=== PATIENT | female | born 1995 | race Caucasian/White ===

== ENCOUNTER 2021-04-05 06:13 | Emergency (ER) | payer OTHER ==
--- NOTE | 2021-04-05 08:12 | EDM.PDOCBH ---
ED HPI GENERAL MEDICAL PROBLEM - General Chief Complaint: Behavioral/Psych Stated Complaint: DEPRESSION/ANXIETY Time Seen by Provider: 04/05/21 07:30 - History of Present Illness INITIAL COMMENTS - FREE TEXT/NARRATIVE: She presents with increasing depression, mood changes, anxiety. Patient has been on Lexapro 10 mg for over the last month prior to that time she been on sertraline. She is followed by a nurse practitioner that manages her medications. She has an appointment tomorrow. She is very teary-eyed on presentation. She feels like she has hopelessness and has thought of ""not wanting to be alive anymore". She is never had a plan of suicide however. She does have a 5-year-old son at the bedside smiling happy and playful. Her is out of town this weekend fishing in [place]. Otherwise she has no other specific family support here in town. No recent triggers for this other than being off her medication for the last week. She also thought she was feeling a little bit better without the medication and did note some lightheaded and dizziness without it. Patient otherwise denies any fevers no headaches no coughing or cold symptoms no vomiting or diarrhea her appetites been somewhat diminished she got a history of thyroid removal and currently on thyroid replacement recently in the last 2 weeks had her blood test and TSH release thyroid function sounds like's been normal and has not required any adjustments. Patient otherwise no has no hallucinations denies smoking alcohol or drug use. Onset: Sudden - Related Data Allergies Allergy/AdvReac Type Severity Reaction Status Date / Time No Known Allergies Allergy Verified 04/05/21 06:29 Home Meds: Home Meds Escitalopram Oxalate [Lexapro] 10 mg PO DAILY 04/05/21 [History] LORazepam [Ativan] 0.5 mg PO Q8HR PRN #4 tablet 04/05/21 [Rx] Levothyroxine 125 mcg PO ACBREAKFAST 04/05/21 [History] Past Medical History HEENT History: Reports: Impaired Vision Other HEENT History: Wears glasses Cardiovascular History: Reports: Other (See Below) Other Cardiovascular History: Ablation for SVT in 2008 [employer] History: Reports: Psychiatric History: Reports: Anxiety, Depression Endocrine/Metabolic History: Reports: Hypothyroidism - Infectious Disease History Infectious Disease History: Reports: Chicken Pox Social & Family History - Family History Family Medical History: No Pertinent Family History - Tobacco Use Tobacco Use Status *Q: Never Tobacco User Second Hand Smoke Exposure: No - Caffeine Use Caffeine Use: Reports: Coffee, Energy Drinks - Recreational Drug Use Recreational Drug Use: No ED ROS GENERAL - Review of Systems Review Of Systems: See Below Constitutional: Reports: No Symptoms HEENT: Reports: No Symptoms Respiratory: Denies: Shortness of Breath, Cough Cardiovascular: Denies: Chest Pain GI/Abdominal: Reports: Nausea. Denies: Abdominal Pain, Diarrhea, Vomiting : Denies: Dysuria Neurological: Reports: No Symptoms Psychiatric: Reports: Anxiety, Depression. Denies: Hallucinations, Homicidal Ideation ED EXAM, BEHAVIORAL HEALTH - Physical Exam Exam: See Below Exam Limited By: No Limitations General Appearance: Alert, WD/WN, Other (Teary-eyed alert and oriented) Respiratory/Chest: No Respiratory Distress, Lungs Clear, Normal Breath Sounds Cardiovascular: Normal Peripheral Pulses, Regular Rate, Rhythm, No Edema GI/Abdominal: Normal Bowel Sounds, Soft Neurological: Alert, Normal Mood/Affect Psychiatric: Normal Cognition, Oriented, Depressed Mood, Other (Patient currently does not feel unsafe.). No: Homicidal Thoughts, Suicidal Plan, Suicidal Thoughts, Auditory Hallucinations, Visual Hallucinations, Paranoid Thoughts Skin Exam: Warm, Dry COURSE, BEHAVIORAL HEALTH COMP - Course Vital Signs: Last Vital Signs Temp 97.6 F 04/05/21 06:28 Pulse 97 04/05/21 06:28 Resp 16 04/05/21 06:28 BP 141/83 H 04/05/21 06:28 Pulse Ox 99 04/05/21 06:28 Re-Assessment/Re-Exam: Patient does have underlying depression and has been off her medications and does have follow-up tomorrow. She plans on calling her to come back early today to help take care of her son. She does have some futuristic thoughts, she currently does not meet acute criteria for hospitalization however did spend a lot of time at the bedside discussing that if she continues to feel this way and/or more severe thoughts of actual suicide and planning an intention that she needs to return immediately. She does have a plan for safety today, will have her make sure she restarts her Lexapro and have given her Ativan 1 mg twice a day #4 no refills and again discussed with at length to come back later today after her 's back if she continues to feel severely depressed and/or if she starts to feel more suicidal. Departure - Departure Time of Disposition: 08:15 Disposition: Home, Self-Care 01 Clinical Impression: Depressive disorder, Anxiety - Discharge Information Prescriptions: LORazepam [Ativan] 0.5 mg PO Q8HR PRN #4 tablet PRN Reason: Anxiety Instructions: Major Depressive Disorder, Adult, Managing Anxiety, Adult Referrals: PCP,Not In Area [Primary Care Provider] - Additional Instructions: Call your and see if he can come back early to give you some support and also be able to watch your 5-year-old, consider when he comes back whether you need to return to consider acute hospitalization to get you feeling better. Otherwise have written a prescription for Ativan half a milligram to take every 6-8 hours as needed for anxiety. Make sure you follow-up with your appointment tomorrow with your primary provider. Return if any increasing depressive symptoms especially if you develop more suicidal thoughts and/or suicidal intentions/plans. Definitely call today and talk to me if you have any worsening concerns. Sepsis Event Note (ED) - Focused Exam Vital Signs: Vital Signs Temp Pulse Resp BP Pulse Ox 04/05/21 06:28 97.6 F 97 16 141/83 H 99
== END 2021-04-05 08:27 | disposition home or self-care (01) ==
LOC: JD.ED 06:13
DX: F32.9 Major depressive disorder, single episode, unspecified (principal); F41.9 Anxiety disorder, unspecified; E03.9 Hypothyroidism, unspecified; Z79.899 Other long term (current) drug therapy
CPT/HCPCS: 99283

== ENCOUNTER 2022-06-03 15:08 | Emergency (ER) | payer BC, OTHER ==
[2022-06-03] MEDS ORDERED: Sodium Chloride 0.9% 10 ML Syringe FLUSH PRN (15:32)
[2022-06-03] MEDS ORDERED: Sodium Chloride 0.9% 1,000 ML IV ONE (15:49)
== END 2022-06-03 19:20 | disposition home or self-care (01) ==
LOC: JD.ED 15:08
DX: R51.9 Headache, unspecified (principal); R79.89 Other specified abnormal findings of blood chemistry; E03.9 Hypothyroidism, unspecified; Z79.899 Other long term (current) drug therapy
CPT/HCPCS: 36415; 71045; 80053; 83735; 84439; 84443; 84484; 85025; 93005; 96360; 99284; J3490; J7030

== ENCOUNTER 2022-08-17 05:37 | Emergency (ER) | payer BC ==
[2022-08-17] MEDS ORDERED: Sodium Chloride 0.9% 1,000 ML IV STA (05:59)
[2022-08-17] MEDS ORDERED: Ondansetron 4 MG/2 ML SDV IVPUSH ONE (05:59)
[2022-08-17] MEDS ORDERED: Sodium Chloride 0.9% 10 ML Syringe FLUSH PRN (05:59)
== END 2022-08-17 07:45 | disposition home or self-care (01) ==
LOC: JD.ED 05:37
DX: A08.4 Viral intestinal infection, unspecified (principal); E03.9 Hypothyroidism, unspecified; Z79.899 Other long term (current) drug therapy
CPT/HCPCS: 36415; 80053; 81001; 84703; 85025; 86140; 96361; 96374; 99284; J2405; J3490; J7030; 99283

== ENCOUNTER 2023-04-20 21:53 | Emergency (ER) | payer BC ==
[2023-04-20] MEDS ORDERED: Sodium Chloride 0.9% 10 ML Syringe FLUSH PRN (22:33)
[2023-04-20] MEDS ORDERED: Ondansetron 4 MG/2 ML SDV IVPUSH ONE (22:33)
[2023-04-20] MEDS ORDERED: Sodium Chloride 0.9% 1,000 ML IV ONE (22:33)
[2023-04-20 23:03] LABS: BASOPHILS PERCENT AUTO 0.3 % (0.0-1.0); EOSINOPHILS ABSOLUTE AUTO 0.1 K/mm3 (0.0-0.4); EOSINOPHILS PERCENT AUTO 0.6 % (0.0-6.0); HEMATOCRIT 37.1 % (37.0-47.0); IMMATURE GRAN ABSOLUTE AUTO 0.05 K/mm3 (0.00-0.05); IMMATURE GRAN PERCENT AUTO 0.4 % (0.0-0.4); LYMPHOCYTES ABSOLUTE AUTO 3.4 K/mm3 (1.0-4.8); LYMPHOCYTES PERCENT AUTO 25.1 % (24.0-44.0); MEAN CORPUSCULAR HEMOGLOBIN 30.4 pg (28.0-32.0); MEAN CORPUSCULAR VOLUME 86.7 fl (83.0-99.0); MEAN PLATELET VOLUME 10.8 fl (9.4-12.3); MONOCYTES ABSOLUTE AUTO 0.7 K/mm3 (0.0-0.8); MONOCYTES PERCENT AUTO 5.2 % (0.0-8.0); NEUTROPHILS ABSOLUTE AUTO 9.4 K/mm3 (1.8-7.7); NEUTROPHILS PERCENT AUTO 68.4 % (41.0-71.0); PLATELET COUNT,PLT 273 K/mm3 (150-400); RED BLOOD CELL COUNT 4.28 M/mm3 (4.10-5.30); WHITE BLOOD CELL COUNT,WBC 13.69 K/mm3 (3.9-11.3)
[2023-04-20 23:28] LABS: A/G RATIO 1.1 (1-2); ALBUMIN 3.8 g/dl (3.4-5.0); ANION GAP 15.3 (5-15); BILIRUBIN TOTAL 0.5 mg/dL (0.2-1.0); BUN/CREATININE RATIO 6.7 (14-18); CALCIUM 9.4 mg/dL (8.5-10.1); CREATININE 0.9 mg/dL (0.55-1.02); EST CRCL DRUG DOSING (CG) 85.98 mL/min; MAGNESIUM 1.8 mg/dL (1.8-2.4); POTASSIUM,K 3.3 mEq/L (3.5-5.1); PROTEIN TOTAL,TP 7.4 g/dl (6.4-8.2)
[2023-04-21 00:07] LABS: APPEARANCE,URINE CLEAR (Clear); BILIRUBIN,URINE NEGATIVE (Negative); COLOR,URINE YELLOW (Yellow); GLUCOSE,URINE NEGATIVE (Negative); KETONES,URINE 2+ (Negative); LEUKOCYTE ESTERASE,URINE NEGATIVE (Negative); NITRITE,URINE NEGATIVE (Negative); OCCULT BLOOD,URINE NEGATIVE (Negative); PROTEIN,URINE 2+ (Negative)
[2023-04-21 00:16] LABS: BACTERIA,URINE FEW /hpf (FEW); EPITHELIAL CELLS,URINE 0-5 /hpf (0-5); MUCUS,URINE MODERATE /hpf (FEW); RBC,URINE NOT SEEN /hpf (0-5); WBC,URINE 0-5 /hpf (0-5)
== END 2023-04-21 00:30 | disposition home or self-care (01) ==
LOC: JD.ED 21:53
DX: O21.0 Mild hyperemesis gravidarum (principal); Z3A.01 Less than 8 weeks gestation of pregnancy
CPT/HCPCS: 36415; 80053; 81001; 83735; 85025; 96361; 96374; 99284; J2405; J7030; 99283

== ENCOUNTER 2023-12-15 13:39 | Inpatient (IN) | payer BC ==
[2023-12-15] MEDS ORDERED: Nalbuphine 10 MG/ML Syringe IVPUSH PRN (13:49)
[2023-12-15] MEDS ORDERED: Lidocaine 1% 50 ML MDV INJECT PRN (13:49)
[2023-12-15] MEDS ORDERED: Ondansetron 4 MG/2 ML SDV IVPUSH PRN (13:49)
[2023-12-15] MEDS ORDERED: Calcium Carbonate 500 MG Tab.Chew PO PRN (13:49)
[2023-12-15] MEDS ORDERED: Sodium Chloride 0.9% 10 ML Syringe FLUSH PRN (13:49)
[2023-12-15] MEDS ORDERED: Oxytocin/Lactated Ringers 30 UNIT/500 ML BAG IV SCH (14:00)
[2023-12-15] MEDS ORDERED: Lactated Ringers 1,000 ML IV SCH (14:00)
[2023-12-15 14:14] LABS: BASOPHILS PERCENT AUTO 0.3 % (0.0-1.0); EOSINOPHILS PERCENT AUTO 0.2 % (0.0-6.0); HEMATOCRIT 34.5 % (37.0-47.0); HEMOGLOBIN 11.4 gm/dl (12.0-16.0); IMMATURE GRAN ABSOLUTE AUTO 0.04 K/mm3 (0.00-0.05); IMMATURE GRAN PERCENT AUTO 0.4 % (0.0-0.4); LYMPHOCYTES ABSOLUTE AUTO 1.4 K/mm3 (1.0-4.8); LYMPHOCYTES PERCENT AUTO 12.1 % (24.0-44.0); MEAN CORPUSCULAR HEMOGLOBIN 29.2 pg (28.0-32.0); MEAN CORPUSCULAR VOLUME 88.5 fl (83.0-99.0); MEAN PLATELET VOLUME 11.1 fl (9.4-12.3); MONOCYTES ABSOLUTE AUTO 0.5 K/mm3 (0.0-0.8); MONOCYTES PERCENT AUTO 4.6 % (0.0-8.0); NEUTROPHILS ABSOLUTE AUTO 9.3 K/mm3 (1.8-7.7); NEUTROPHILS PERCENT AUTO 82.4 % (41.0-71.0); PLATELET COUNT,PLT 178 K/mm3 (150-400); WHITE BLOOD CELL COUNT,WBC 11.22 K/mm3 (3.9-11.3)
[2023-12-15] MEDS ORDERED: Benzocaine/Menthol 20%-0.5% Spray 78 GM Cannister TOP PRN (18:09)
[2023-12-15] MEDS ORDERED: Witch Hazel Medicated Pads 40/Jar TOP PRN (18:09)
[2023-12-15] MEDS ORDERED: Acetaminophen 325 MG Tab PO PRN (18:09)
[2023-12-15] MEDS: Ibuprofen 600 MG Tab PO SCH (20:59)
[2023-12-15] MEDS ORDERED: Sodium Chloride 0.9% 10 ML Syringe FLUSH SCH (21:00)
[2023-12-16] MEDS: Levothyroxine 112 MCG Tab PO SCH (08:21)
[2023-12-16] MEDS: Levothyroxine 25 MCG Tab PO SCH (08:22)
[2023-12-16] MEDS ORDERED: Non-Formulary Medication 1 Each (Levothyroxine [Levothyroxine] 125 MCG Tablet) PO SCH (09:00)
== END 2023-12-16 17:57 | disposition home or self-care (01) | DRG 560 ==
LOC: JD.OBCHECK 13:39 → JD.OB 13:44 → JD.OBCHECK 14:38 → OBSVTOIN 16:39 → JD.OB 16:40
PROVIDERS: ADMIT Obstetrics & Gynecology; ATTEND Obstetrics & Gynecology
PROC: 10E0XZZ Delivery of Products of Conception, External Approach (ICD-10-PCS; principal; 2023-12-15)
PROC: 10907ZC Drainage of Amniotic Fluid, Therapeutic from Products of Conception, Via Natural or Artificial Opening (ICD-10-PCS; 2023-12-15)
DX: O48.0 Post-term pregnancy (principal); Z37.0 Single live birth; O69.81X0 Labor and delivery complicated by cord around neck, without compression, not applicable or unspecified; Z98.890 Other specified postprocedural states; Z3A.40 40 weeks gestation of pregnancy
CPT/HCPCS: 36415; 59025; 59409; 85025; 86592; 86850; 86900; 86901